=== PATIENT | female | born 1945 | race Caucasian/White ===

== ENCOUNTER 2025-04-02 10:05 | Day surgery (SDC) | payer MEDICARE, OTHER ==
[~2025-04-02 10:05] MED LIST: Dexamethasone/Neomycin/Polymyxin B Ophth Oint 3.5 GM Tube ONE; Lidocaine 1% 2 ML ONE; Midazolam 1 MG/ML 2 ML SDV ONE; Phenyleprhine/Ketorolac 4 ML Vial ONE; Povidone-Iodine 5% Sterile Ophth Soln 30 ML Bottle ONE; acetaZOLAMIDE 500 MG Cap.ER PO ONE; fentaNYL 100 MCG/2 ML SDV ONE
[2025-04-02] MEDS: Cyclopentolate 1% Opth Soln 2 ML Bottle EYELF SCH (10:45)
[2025-04-02] MEDS: Moxifloxacin 0.5% Ophth Soln 3 ML Bottle EYELF ONE ×2 (11:05→11:41)
[2025-04-02] MEDS: Povidone-Iodine 5% Sterile Ophth Soln 30 ML Bottle EYELF ONE (11:41)
[2025-04-02] MEDS: Balanced Salt Solution Ophth Irrig 500 ML Bottle IOCULAR ONE (11:42)
[2025-04-02] MEDS: Chondroitin Sulfate/Hyaluronate Sodium Ophth Inj 0.5 ML Syringe IOCULAR ONE (11:42)
[2025-04-02] MEDS: Phenyleprhine/Ketorolac 4 ML Vial IOCULAR ONE (11:42)
[2025-04-02] MEDS: Lidocaine 1% PF 2 ML SDV INFILT ONE (11:42)
[2025-04-02] MEDS: Dexamethasone/Neomycin/Polymyxin B Ophth Oint 3.5 GM Tube EYELF ONE (11:43)
== END 2025-04-02 12:27 | disposition home or self-care (01) ==
LOC: VM.SDS 10:05
PROVIDERS: ATTEND Ophthalmology
DX: E11.36 Type 2 diabetes mellitus with diabetic cataract (principal); H25.813 Combined forms of age-related cataract, bilateral; H57.03 Miosis; I25.10 Atherosclerotic heart disease of native coronary artery without angina pectoris; I13.0 Hypertensive heart and chronic kidney disease with heart failure and stage 1 through stage 4 chronic kidney disease, or unspecified chronic kidney disease; I50.9 Heart failure, unspecified; N18.30 Chronic kidney disease, stage 3 unspecified; E66.9 Obesity, unspecified; Z68.41 Body mass index [BMI] 40.0-44.9, adult; Z79.84 Long term (current) use of oral hypoglycemic drugs; Z79.82 Long term (current) use of aspirin; Z79.899 Other long term (current) drug therapy
CPT/HCPCS: 00142; 82947; 99100; A9270-GY; J0690; J1097; J2003; J2250; J3010; J3490; V2632